=== PATIENT | male | born 1965 | race Caucasian/White ===

== ENCOUNTER 2016-10-07 13:52 | Emergency (ER) | payer SELFPAY ==
[2016-10-07 14:13] VITALS: BP 150/75; PULSE 88; TEMP 97.5; BMI 25.7
[2016-10-07] MEDS ORDERED: TRIMETHOPRIM-SULFAMETHOXAZOLE TAB PO ONE (14:23)
[2016-10-07] MEDS ORDERED: LIDOCAINE 2% 5 ML (PRESERVATIVE FREE) VIAL INF ONE (14:23)
[2016-10-07] MEDS ORDERED: IBUPROFEN 800 MG TAB PO ONE (14:23)
[2016-10-07] MEDS ORDERED: CLINDAMYCIN 150 MG CAP PO ONE (14:24)
--- NOTE | 2016-10-07 14:26 | EDPRACDOC ---
- General Information Chief Complaint: Wound Stated Complaint: ABSCESS LIKE AREA TO LT 5TH FINGER Time Seen by Provider: 10/07/16 14:16 Information Source: Patient Mode of Arrival:: Car Home Medications: Home Medications Clindamycin [Cleocin] 150 mg PO Q6 #56 cap 10/07/16 Glipizide [Glipizide ER] 5 mg PO DAILY 10/07/16 Metformin HCl 500 mg PO BID 10/07/16 Oxycodone Immediate Release [Oxycodone Immediate Release (OxyIR)] 5 mg PO Q6H PRN #14 tab 10/07/16 Allergies/Adverse Reactions: Allergies Allergy/AdvReac Type Severity Reaction Status Date / Time No Known Allergies Allergy Verified 07/15/16 14:08 - History of Present Illness Onset: SEVERAL DAYS HPI: PT PRESENTS WITH SWELLING, REDNESS TO THE LEFT 5TH DIGIT. STATES AN BOIL CAME UP IN THE AREA SEVERAL DAYS AGO AND HE SQUEEZED IT. NOW HAS REDNESS AND EDEMA THAT EXTENDS TO THE WRIST. Location: Reports: Extremity Last Tetanus: No Relevent History Of: Reports: None Prior Abscess: Reports: None Pain: Reports: Mild Quality: Reports: Painful, Red Associated Signs & Symptoms: Reports: None ED Past Medical History - History Reviewed Yes Nurses notes reviewed and agree except as marked - Patient Medical History GI/ History: Reports: Kidney Stones (17 years ago) Musculoskeletal History: Reports: Arthritis Psychological History: Denies: Depression Systemic History: Reports: Diabetes (NIDDM) - Social Medical History Smoking Status: Heavy tobacco smoker (5 or more cigarettes/day or daily pipe/ cigar) EDM Review of Systems - Review of Systems ROS Negative Except as Marked: Yes All systems reviewed and were negative except as marked - Physical Exam Constitutional: Alert Oriented to: Time, Person, Place Last recorded Vital Signs: Last Vital Signs Temp 97.5 F 10/07/16 14:12 Pulse 88 10/07/16 14:12 Resp 18 10/07/16 14:12 BP 150/75 10/07/16 14:12 Pulse Ox 96 10/07/16 14:12 Oxygen Pulse Oxygen Saturation 96 O2 Device Oxygen Flow Rate Fraction of Inspired Oxygen ( FIO2) - HEENT Head: Normal ( normocephalic) Eye Exam: Normal (PERRL, EOMI, Sclera white) Oropharynx: Normal (Pharynx:Moist without exudate,Gums-no swelling) Nose: No Symptoms Reported (septum midline) Neck: Normal (FROM, trachea at midline) - Respiratory/Cardiovascular Respiratory: Normal - CTA (BBS clear to auscultation without adventitious sounds ) Cardiovascular: Normal (RRR without murmur, gallop or rub) - GI Auscultation: Normal (NABS) Palpation: Normal (Soft,No rebound or guarding, non distended) Tenderness: Non tender Medel's Sign: Negative Rectal Exam: Deferred - Musculoskeletal Back: Normal (Non-Tender) Extremities: Normal (Normal tone, Pulses 2+ No cyanosis or edema, FROM) - Integumentary Skin: Normal, Warm, Dry Lymphatics: Normal (no adenopathy) - Neurologic Memory Impaired: Normal Motor Function: Normal (Normal tone, Pulses 2+ No cyanosis or edema, FROM) Cranial Nerve: Normal (CN II-X11 intact sensation, strength 5/5) Cerebellar: Normal Mood Description: Normal Perception: Normal ED Abscess/Mass Exam - Integumentary Skin: Normal Mass: Size (GRAPE), Red, Tender, Warm, Firm, Extensive Cellulitis Lymphatics: Normal ED Procedures - Incision and Drainage Informed of risks, benefits and alternatives described.: Yes Informed Consent Signed: Verbal Site: LEFT 5TH DIGIT Indication: Painful Mass Anesthetic: Lidocaine Prep: Betadine Blade Size: 11 Incised Site drained: Reports: Pus Incised site was: Irrigated - Differential Diagnosis Abscess, Cellulitis Decision Time to Discharge: 14:48 - Departure Disposition: Home Condition: Stable Final Diagnosis: Abscess Cellulitis Qualifiers: Site of cellulitis: extremity Site of cellulitis of extremity: upper extremity Laterality: left Qualified Code(s): L03.114 - Cellulitis of left upper limb Instructions: Cellulitis (ED), Abscess (ED) Education/Counseling Given To: Patient Education/Counseling Given Regarding: Diagnosis, Treatment, Prognosis, Follow Up Referrals: Warner Jerome MD [Staff Physician] - One Week Prescriptions: Clindamycin [Cleocin] 150 mg PO Q6 #56 cap Oxycodone Immediate Release [Oxycodone Immediate Release (OxyIR)] 5 mg PO Q6H PRN #14 tab PRN Reason: Pain Additional Instructions: KEEP AREA CLEAN AND DRY. CHANGE DRESSING TWICE A DAY. RETURN TO THE ED IN TWO DAYS FOR A WOUND CHECK. RETURN SOONER IF THE AREA WORSENS OR IF YOU BEGIN TO SHOW SIGNS OR SYMPTOMS OF INFECTION SUCH NAUSEA, VOMITING, CHILLS, FEVER. TAKE ALL YOUR ANTIBIOTICS PRESCRIBED. FOLLOW UP WITH PRIMARY CARE PROVIDER NEXT WEEK. KEEP AREA ELEVATED AND YOU MAY PLACE ICE ON THE AREA FOR COMFORT.
== END 2016-10-07 15:01 | disposition home or self-care (01) ==
LOC: EDMC 13:52
DX: L03.114 Cellulitis of left upper limb (principal)
CPT/HCPCS: 10060; 99283; J2001; J3490

== ENCOUNTER 2016-10-09 19:24 | Emergency (ER) | payer SELFPAY ==
[2016-10-09 19:25] VITALS: BMI 25.7
[2016-10-09 19:38] VITALS: BP 148/88; PULSE 96; TEMP 98.6
[2016-10-09 22:32] LABS: AUTOMATED BASOPHIL 0.9 % (0-2); AUTOMATED EOSINOPHIL 1.4 % (0-5); AUTOMATED LYMPH 21.7 % (17-44); AUTOMATED MONOCYTE 9.5 % (3-10); AUTOMATED NEUTROPHIL 66.5 % (45-76); MPV 8.2 fL (7.4-10.4)
[2016-10-09] MEDS ORDERED: HYDROmorphone 1 MG INJECTION IV ONE (22:38)
[2016-10-09 22:56] LABS: BLOOD UREA NITROGEN 16 MG/DL (9-20); CALC CORRECTED 9.1 MG/DL (8.4-10.2); CALCIUM 8.9 MG/DL (8.4-10.2); CALCULATED OSMOLALITY 271 MOs/Kg (270-290); CHLORIDE 95 mEq/L (98-107); GLUCOSE 354 MG/DL (70-99); SODIUM LEVEL 133 mEq/L (137-146)
[2016-10-09] MEDS ORDERED: Pharmacy Review for Metformin - IV Contrast Given SCH (23:00)
--- NOTE | 2016-10-10 00:01 | DIRPT ---
CLINICAL DATA: 51-year-old male with right hand swelling painful left hand. History of recent boils over the left fifth digit and treatment with and reactive. EXAM: CT OF THE UPPER LEFT EXTREMITY WITH CONTRAST TECHNIQUE: Multidetector CT imaging of the left hand was performed according to the standard protocol following intravenous contrast administration. COMPARISON: None. CONTRAST: 100 cc Isovue 370 FINDINGS: There is diffuse soft tissue swelling of the hand predominantly involving the dorsum of the hand. There is a bilobed appearing fluid collection in the soft tissues of the dorsum of the hand laterally extending into the 4th and 5t intermetacarpal soft tissues compatible with an abscess. This collection measures approximately 1.5 x 1.5 cm in axial dimension approximately 3 cm in length. It is approximately 7 mm deep to the skin and abuts the midportion of the fifth metacarpal cortex. No discrete osseous erosion or periosteal reaction noted to indicate osteomyelitis. Ultrasound may provide better evaluation of the fluid collection. No acute fracture identified. IMPRESSION: Small fluid collection/abscess in the soft tissues of the dorsum of the hand extending to the intermetacarpal soft tissues and abutting the fifth metacarpal cortex. Ultrasound may provide better evaluation of this collection. No definite evidence of osseous injury or osteomyelitis. MRI may provide better evaluation if there is high clinical suspicion for osteomyelitis. Electronically Signed By: Pérez Coffman M.D. On: 10/09/2016 23:58
[2016-10-10] MEDS ORDERED: Lidocaine 2%-Epinephrine 1:100,000 20ml vial INF ONE (00:22)
[2016-10-10] MEDS ORDERED: HYDROmorphone 1 MG INJECTION IV ONE ×2 (00:41→01:03)
--- NOTE | 2016-10-10 01:11 | EDPRACDOC ---
- General Information Chief Complaint: Wound Stated Complaint: WOUND CHECK Time Seen by Provider: 10/09/16 22:02 Information Source: Patient Mode of Arrival:: Car Home Medications: Home Medications Clindamycin [Cleocin] 150 mg PO Q6 #56 cap 10/07/16 Glipizide [Glipizide ER] 5 mg PO DAILY 10/07/16 Metformin HCl 500 mg PO BID 10/07/16 Oxycodone Immediate Release [Oxycodone Immediate Release (OxyIR)] 5 mg PO Q6H PRN #14 tab 10/07/16 Cephalexin Monohydrate [Keflex] 500 mg PO Q8H #30 cap 10/10/16 Oxycodone HCl/Acetaminophen [Percocet 5-325 mg Tablet] 1 each PO Q4 #30 tablet 10/10/16 Sulfamethoxazole/Trimethoprim [Bactrim Ds Tablet] 1 tab PO BID #20 tab 10/10/16 Allergies/Adverse Reactions: Allergies Allergy/AdvReac Type Severity Reaction Status Date / Time No Known Allergies Allergy Verified 07/15/16 14:08 - History of Present Illness Onset: 1 weeks HPI: PATIENT HAS A HX OD MRSA. HAD INCISION AND DRAINAGE OF LESION ON LITTLE FINGER 3 DAYS AGO. TAKING CLINDAMYCIN. RETURNS C/O HAND SWELLING AND PAIN. NO FEVER Last Tetanus: No Prior Abscess: Reports: Different Pain: Reports: Mild Quality: Reports: Painful, Red Associated Signs & Symptoms: Reports: None ED Past Medical History - History Reviewed Yes Nurses notes reviewed and agree except as marked Travel Outside of [place] in the Last 3 Months?: No - Patient Medical History GI/ History: Reports: Kidney Stones (17 years ago) Musculoskeletal History: Reports: Arthritis Psychological History: Denies: Depression Systemic History: Reports: Diabetes (NIDDM) - Social Medical History Smoking Status: Heavy tobacco smoker (5 or more cigarettes/day or daily pipe/ cigar) ETOH: None Substance Abuse: None Lives With: Family Lives In: Home EDM Review of Systems - Review of Systems ROS Negative Except as Marked: Yes All systems reviewed and were negative except as marked Constitutional: No Symptoms Reported. negative: Fever, Chills, Weakness, Fatigue, Loss of Appetite Eyes: No Symptoms Reported. negative: Redness, Blurred Vision, Double Vision, Discharge, Pain, Light Sensitive, Photophobia Ears: No Symptoms Reported. negative: Pain, Hearing Loss, Drainage, Ear Pulling Throat: No Symptoms Reported. negative: Pain, Swelling Nose: No Symptoms Reported. negative: Congestion, Bleeding, Discharge, Injection, Swelling, Deformity, Ecchymosis, Tender, Abrasion, Laceration Mouth: No Symptoms Reported. negative: Pain, Drooling Respiratory: No Symptoms Reported. negative: Cough, Brassy Cough, Barky Cough, Shortness of Breath, Wheezing, Hemoptysis Cardiovascular: No Symptoms Reported. negative: Chest Pain, Palpitations, Syncope, Edema, Orthopnea, PND, Skin Mottling, Cyanosis Gastrointestinal: No Symptoms Reported. negative: Pain, Constipation, Nausea, Vomiting, Diarrhea, Melena, Formula Intolerance Genitourinary: No Symptoms Reported. negative: Dysuria, Hematuria, Frequency, Discharge, Bleeding, Testicular Pain, Neurological: No Symptoms Reported. negative: Headache, Dizziness, Seizure, Numbness, Weakness, Speech Difficulty, Gait Difficulty Musculoskeletal: Hand. negative: Arm, Ankle, Back, Chestwall, Elbow, Forearm, Femur, Foot, Hip, Knee, Leg, Neck, Pelvis, Ribs, Shoulder, Wrist Integumentary: Wound. negative: Bruising, Itching, Rash Allergic/Immunologic: No Symptoms Reported. negative: Hives, Itching Hematologic: No Symptoms Reported. negative: Lymphadenopathy, Easy Bruising, Easy Bleeding Endocrine: No Symptoms Reported. negative: Weight Gain, Weight Loss Psychiatric: No Symptoms Reported. negative: Anxiety, Depression, Hallucinations, Insomnia, Suicidal - Physical Exam Constitutional: Alert (Awake), Distress (MILD) Oriented to: Time, Person, Place Last recorded Vital Signs: Last Vital Signs Temp 98.6 F 10/09/16 19:31 Pulse 96 10/09/16 19:31 Resp 20 10/09/16 19:31 BP 148/88 10/09/16 19:31 Pulse Ox 96 10/09/16 19:31 Oxygen Pulse Oxygen Saturation 96 O2 Device Room Air Oxygen Flow Rate Fraction of Inspired Oxygen ( FIO2) - HEENT Head: Normal ( normocephalic) Eye Exam: Normal (PERRL, EOMI, Sclera white) Oropharynx: Normal (Pharynx:Moist without exudate,Gums-no swelling) Tympanic Membrane: Normal ENT EAC: Normal TMJ: Normal Nose: No Symptoms Reported (septum midline) Neck: Normal (FROM, trachea at midline) - Respiratory/Cardiovascular Respiratory: Normal - CTA (BBS clear to auscultation without adventitious sounds ) Cardiovascular: Normal (RRR without murmur, gallop or rub) - GI Auscultation: Normal (NABS) Palpation: Normal (Soft,No rebound or guarding, non distended) Tenderness: Non tender Medel's Sign: Negative - Bladder: Normal - Musculoskeletal Back: Normal (Non-Tender) Extremities: Other (SWELLING AND FLUCTUANCE ALONG 5TH METCARPAL. TENDERNESS) - Integumentary Skin: Normal, Warm, Dry Lymphatics: Normal (no adenopathy) - Neurologic Memory Impaired: Normal Motor Function: Normal (Normal tone, Pulses 2+ No cyanosis or edema, FROM) Cranial Nerve: Normal (CN II-X11 intact sensation, strength 5/5) Cerebellar: Normal Mood Description: Normal Perception: Normal ED Abscess/Mass Exam - Integumentary Skin: Hot Mass: Size (3CM), Red, Tender, Fluctuant, Local Cellulitis Lymphatics: Normal ED Procedures - Incision and Drainage Informed of risks, benefits and alternatives described.: Yes Informed Consent Signed: Verbal Site: HAND Indication: Painful Mass Anesthetic: Lidocaine, without Epi Prep: Betadine Blade Size: 11 Incised Site drained: Reports: Blood, Pus Incised site was: Irrigated, Packed with Iodoform - Results 10/09/16 22:25 10/09/16 22:25 Lab Results: WBC 9.1 xk/uL (3.8-10.8) 10/09/16 22:25 RBC 5.23 xM/uL (4.70-6.10) 10/09/16 22:25 Hgb 15.5 g/dL (14.0-18.0) 10/09/16 22:25 Hct 45.2 % (42-52) 10/09/16 22:25 MCV 87 fL (80-94) 10/09/16 22:25 MCH 29.6 pg (27-32) 10/09/16 22:25 MCHC 34.2 g/dl (33-36) 10/09/16 22:25 RDW 13.6 % (11.5-14.5) 10/09/16 22:25 Plt Count 213 xk/uL (130-400) 10/09/16 22:25 MPV 8.2 fL (7.4-10.4) 10/09/16 22:25 Neut % (Auto) 66.5 % (45-76) 10/09/16 22:25 Lymph % (Auto) 21.7 % (17-44) 10/09/16 22:25 [place] % (Auto) 9.5 % (3-10) 10/09/16 22:25 Eos % (Auto) 1.4 % (0-5) 10/09/16 22:25 Baso % (Auto) 0.9 % (0-2) 10/09/16 22:25 Absolute Neuts (auto) 6.01 xk/uL (1.7-8.2) 10/09/16 22:25 Absolute Lymphs (auto) 1.91 xk/uL (0.65-4.75) 10/09/16 22:25 Sodium 133 mEq/L (137-146) L 10/09/16 22:25 Potassium 4.2 mEq/L (3.5-5.1) 10/09/16 22:25 Chloride 95 mEq/L (98-107) L 10/09/16 22:25 Carbon Dioxide 26 mMOL/L (22-33) 10/09/16 22:25 Anion Gap 16 mEq/L (8-16) 10/09/16 22:25 BUN 16 MG/DL (9-20) 10/09/16 22:25 Creatinine 0.50 MG/DL (0.66-1.25) L 10/09/16 22:25 Estimated GFR (MDRD) > 60 mL/min (>=60) 10/09/16 22:25 Glucose 354 MG/DL (70-99) H 10/09/16 22:25 Calculated Osmolality 271 MOs/Kg (270-290) 10/09/16 22:25 Calcium 8.9 MG/DL (8.4-10.2) 10/09/16 22:25 Corrected Calcium 9.1 MG/DL (8.4-10.2) 10/09/16 22:25 Total Bilirubin 0.6 MG/DL (0.2-1.3) 10/09/16 22:25 AST 27 IU/L (17-59) 10/09/16 22:25 ALT 31 IU/L (21-72) 01/18/17 22:25 Alkaline Phosphatase 61 IU/L (38-126) 10/09/16 22:25 Total Protein 8.0 G/DL (6.3-8.2) 10/09/16 22:25 Albumin 3.8 G/DL (3.5-5.0) 10/09/16 22:25 Lab Results 10/09/16 10/09/16 22:25 22:25 WBC 9.1 RBC 5.23 Hgb 15.5 Hct 45.2 MCV 87 MCH 29.6 MCHC 34.2 RDW 13.6 Plt Count 213 MPV 8.2 Neut % (Auto) 66.5 Lymph % (Auto) 21.7 [place] % (Auto) 9.5 Eos % (Auto) 1.4 Baso % (Auto) 0.9 Absolute Neuts (auto) 6.01 Absolute Lymphs (auto) 1.91 Sodium 133 L Potassium 4.2 Chloride 95 L Carbon Dioxide 26 Anion Gap 16 BUN 16 Creatinine 0.50 L Estimated GFR (MDRD) > 60 Glucose 354 H Calculated Osmolality 271 Calcium 8.9 Corrected Calcium 9.1 Total Bilirubin 0.6 AST 27 ALT 31 Alkaline Phosphatase 61 Total Protein 8.0 Albumin 3.8 Decision Time to Discharge: 01:12 - Departure Yes I personally saw and evaluated the patient. Disposition: Home Condition: Good Final Diagnosis: Abscess of left hand Instructions: MRSA (Methicillin Resistant Staphylococcus Aureus) (ED), Incision and Drainage (ED) Education/Counseling Given To: Patient, Family Member Education/Counseling Given Regarding: Diagnosis, Treatment, Prognosis, Follow Up Referrals: None,No Provider [Primary Care Provider] - One Week Lucio Orellana IV, MD [NonStaff] - One Week Prescriptions: Cephalexin Monohydrate [Keflex] 500 mg PO Q8H #30 cap Oxycodone HCl/Acetaminophen [Percocet 5-325 mg Tablet] 1 each PO Q4 #30 tablet Sulfamethoxazole/Trimethoprim [Bactrim Ds Tablet] 1 tab PO BID #20 tab Additional Instructions: RETURN IN 2 DAYS FOR PACKING REMOVAL. VANCOMYCIN OUTPT BID. F/U WITH DR. ORELLANA HAND SURGERY- [phone]
== END 2016-10-10 01:54 | disposition home or self-care (01) ==
LOC: ED 19:24
DX: L02.512 Cutaneous abscess of left hand (principal)
CPT/HCPCS: 10060; 36415; 73201; 80053; 85025; 87070; 87075; 87077; 87186; 96365; 96366; 96375; 96376; 99283; A9698; J1170; J3370; J3490; J7060